=== PATIENT | female | born 1985 | race Two or more races ===

== ENCOUNTER 2017-07-27 16:19 | Emergency (ER) | payer OTHER ==
[~2017-07-27] VITALS: Ht 165.1 cm; Wt 54.5 kg
[~2017-07-27 16:19] MED LIST: COL100L PO; IBUP-1152 PO; NOMED; OXY5 PO
[2017-07-27 16:27] VITALS: BP 152/99; PULSE 77; RESP 16; O2SAT 100
[2017-07-27 17:02] LABS: BASOPHILS % (AUTO) 0.7 % (0-3); EOSINOPHILS % (AUTO) 1.6 % (0-5); MONOCYTES % (AUTO) 11.7 % (4-12); Mean Corpuscular Hemoglobin 29.3 pg (27.0-35.0); Mean Corpuscular Volume 85.6 fL (81-100); NEUTROPHILS % (AUTO) 50.3 % (40-74); Platelet Count 284 bil/L (150-400)
--- NOTE | 2017-07-27 17:16 | ED.REPORT ---
HPI-Chest Pain Under 40 Date of Service Jul 27, 2017 ED Provider: Raad Yin MD The pt is a left-handed 32 year old female with a history of anxiety who presents to the ED complaining of chest pain. This is described as a "squeezing pain" that began on 07/25/2017 when the pt was getting ready for work. The pain is located in the left pectoral region radiating to her back and is exacerbated by movement. The pt denies fever or chills. She also denies any history of blood clots or recent periods of immobilization. The patient works in a [employer] facility and does repeated lifting with her left arm. She thinks that she sprained a muscle. Nursing Notes Stated Complaint: HEART PAIN Chief Complaint: Chest Pain Nursing Notes Reviewed: Yes Allergies: Coded Allergies: No Known Allergies (Verified Allergy, Unknown, 07/27/17) Scheduled Docusate Sod-Expunged Drug, Do Not Renew! (Docusate Sod-Expunged Drug, Do Not Renew!) 100 Mg Capsule 100 MG PO BID Scheduled PRN IBUPROFEN-Expunged Drug, Do Not Renew! (IBUPROFEN-Expunged Drug, Do Not Renew!) 800 Mg Tablet 800 MG PO Q6H PRN PRN For Pain oxyCODONE-Expunged, Do Not Renew! (oxyCODONE-Expunged, Do Not Renew!) 5 Mg Tablet 5-10 MG PO Q4 PRN PRN For Pain Miscellaneous Medications No Historical Medication (No Historical Medication) Ea General Time Seen by MD: 17:14 Chief Complaint Chest pain Hx Obtained From: Patient Arrived By: Walk-in Sudden in Onset?: Yes Onset Occurred: 2 days ago Symptom Duration: Since onset Recent Healthcare: No recent doctor visit, No recent hospitalization Similar Sx Previous: No Past Medical History Past Medical History anxiety depression hypertension Past Surgical History none reported Smoking History Unknown if Ever Smoker Social History Other Social History: Good social support Ambulatory Status Independent Review of Systems Constitutional: Denies: Chills, Fever Respiratory: Denies: Non-productive cough, Shortness of breath Cardiovascular: Reports: Chest pain GI: Denies: Abdominal pain, Vomiting Musculoskeletal: Reports: Back pain, Denies: Neck pain Skin: Denies Rash Complete sys rev & neg: except as marked. Physical Exam Initial Vital Signs Vital Signs (First) Date Time Temp Pulse Resp B/P Pulse Ox O2 Delivery O2 Flow Rate FiO2 07/27/17 16:27 36.7 77 16 152/99 100 Room Air Initial VS: Reviewed General/Constitutional: Awake, Alert Respiratory / Chest: Breath sounds NL, Breath sounds = bilat, No respiratory distress reproducible tenderness about the left anterior and lateral chest wall in the pectoral region reproducible pain with movement of the left shoulder, bending and twisting Cardiovascular: Heart rate NL, Regular rhythm, Heart sounds NL, No gallop, No murmurs, No rubs Neck: Atraumatic, Supple, Full range of motion Abdomen: Atraumatic, Soft, Non-tender, No distention Back: Atraumatic, Full range of motion Lower Extremity / Pelvis / MS: Atraumatic, Full range of motion no calf swelling or tenderness Skin: Atraumatic, Color NL, No rash, Warm, Dry Neurologic: Oriented X3, Speech NL, No motor deficits, No sensory deficits Psychiatric: Affect NL, Mood NL Head / Eyes: Atraumatic, Normocephalic, PERRL, EOMI ENT: Atraumatic, Airway patent, Mucous membranes moist Upper Extremity / MS: Atraumatic, Full range of motion Interpretation & Diagnostics Lab Results Interpretation Result Diagram: 07/27/17 1658 07/27/17 1658 Test 07/27/17 16:58 White Blood Count 4.3th/mm3 (3.8-10.1) Red Blood Count 4.51mil/mm3 (3.90-5.20) Hemoglobin 13.2g/dL (12.0-15.6) Hematocrit 38.6% (35.0-46.0) Mean Corpuscular Volume 85.6fL (81-100) Mean Corpuscular Hemoglobin 29.3pg (27.0-35.0) Mean Corpuscular Hemoglobin Concent 34.2% (32.0-37.0) Red Cell Distribution Width 12.4% (12.3-15.4) Platelet Count 284bil/L (150-400) Neutrophils (%) (Auto) 50.3% (40-74) Lymphocytes (%) (Auto) 35.7% (14-46) Monocytes (%) (Auto) 11.7% (4-12) Eosinophils (%) (Auto) 1.6% (0-5) Basophils (%) (Auto) 0.7% (0-3) Sodium Level 138mEq/L (134-144) Potassium Level 4.0mEq/L (3.5-5.2) Chloride Level 101mEq/L (97-108) Carbon Dioxide Level 24mmol/L (18-29) Blood Urea Nitrogen 12mg/dL (6-20) Creatinine 0.54mg/dL (0.57-1.00) Estimat Glomerular Filtration Rate 189mL/min (>59) Glucose Level 93mg/dL (60-99) Calcium Level 9.3mg/dL (8.5-10.1) Magnesium Level 2.0mg/dL (1.6-2.6) Total Bilirubin 0.2mg/dL (0.0-1.2) Aspartate Amino Transf (AST/SGOT) 14U/L (0-50) Alanine Aminotransferase (ALT/SGPT) 11U/L (0-32) Alkaline Phosphatase 50U/L (25-150) Troponin T < 0.010ug/L (0.0-0.011) Total Protein 8.0g/dL (6.4-8.4) Albumin 4.5g/dL (3.4-5.0) Human Chorionic Gonadotropin, Qual Negative (Negative) Hold Mares Top Tube Received (Received) ECG Interpretation ECG Interpretation: normal sinus rhythm with a rate of 73 normal axis normal interval no ST segment elevation no T wave inversions no prior EKG available for comparison Time: 16:45 Interpreted by: ED physician X-Ray Chest Interpretation Chest Xray Interpretation: IMPRESSION: Acute disease is not seen in the portable chest. Dictated by: Brandon Horta M.D. on 07/27/2017 at 17:35 Approved by: Brandon Horta M.D. on 07/27/2017 at 17:35 Interpretation / Wet Read by: Interpret - Radiologist Re-Eval/Medical Decision Med Decision/Clinical Course The pt is a left-handed 32 year old female with a history of anxiety who presents to the ED complaining of chest pain. This is described as a "squeezing pain" that began on 07/25/2017 when the pt was getting ready for work. The pain is located in the left pectoral region radiating to her back and is exacerbated by movement. The pt denies fever or chills. She also denies any history of blood clots or recent periods of immobilization. 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 She thinks that she sprained a muscle. Here in the emergency department the patient is afebrile with stable vital signs and examination as above. Of note her pain is reproducible with movement and palpation. Laboratory studies were obtained as below: CBC unremarkable CMP unremarkable Troponin negative negative CXR: Obtained, reviewed and interpreted by myself shows no evidence of infiltrates, effusions or pneumothorax. Cardiac and mediastinal silhouette normal. No bony or soft tissue abnormalities. EKG: normal sinus rhythm with a rate of 73 normal axis normal interval no ST segment elevation no T wave inversions no prior EKG available for comparison Overall presentation is unconvincing for acute coronary syndrome. Patient is relatively young, extremely low risk without convincing story for cardiac etiologies of her chest pain. Given negative initial screening EKG and troponin I do not feel that further workup is indicated. Presentation not suggestive of pulmonary embolism. Patient is very low risk for PE with no evidence of DVT on examination. I do not feel that workup for pulmonary embolism is indicated. Presentation, history and examination are consistent with musculoskeletal etiologies of pain. Advised to take ibuprofen, apply ice packs, stretching and follow-up with her primary care physician. Patient is in agreement with this plan. Prior to discharge follow-up and return precautions were reviewed in detail with the patient who verbalized understanding and agreement with the plan. The patient was discharged in stable condition. Re-Evaluation/Progress : Time of Eval: 18:17 Patient Status: Condition improved Re-Evaluation/Progress Note: Pt rechecked, who is resting. The diagnosis and plan for discharge are discussed. The pt understands and agrees with the plan. All questions are addressed at this time. Counseled Regarding: Diagnosis, Lab results, Need for follow-up, When/why to return to ED Discharge & Departure Primary Impression: Chest wall pain Additional Impressions: Pectoralis muscle strain Encounter type: initial encounter Qualified Code: S29.011A - Strain of muscle and tendon of front wall of thorax, initial encounter Anxiety Disposition: Home Discharge Condition All VS Reviewed: Yes Condition: Stable Patient Instructions: Noncardiac Chest Pain (ED) Additional Instructions: Thank you for seeking care at the emergency room. It is difficult for us to make definitive diagnoses in the ED but we believe that you are experiencing a muscle strain. Our primary goal today in the Emergency Department was to evaluate you for any life-threatening conditions. Your evaluation was reassuring. Take ibuprofen three times daily for up to one week. You should follow-up with your primary doctor in the next week. You should return to the Emergency Department immediately if you develop worsening pain, pain with exertion, fevers, vomiting, cough, shortness of breath , weakness or any other concerning signs or symptoms. Thank you for letting us partake in your care today. Referrals: Zoey Lindo MD (PCP) Scribe Attestation Portions of this note were transcribed by Patrick Langston. I, Dr. Yin personally performed the history, physical exam and medical decision-making; I reviewed and confirmed the accuracy of the information in the transcribed note. copies to: Zoey Lindo MD, Beck O MD Jul 27, 2017 17:16 PATRICK LANGSTON Jul 27, 2017 18:11
--- NOTE | 2017-07-27 17:36 | DRSVH ---
PROCEDURE: X-RAY CHEST ONE VIEW, PORTABLE ([id number]) INDICATIONS: chest pain TECHNIQUE: One view of the chest was acquired. COMPARISON: None. FINDINGS: Surgical changes and devices: None. Lungs and pleura: No pleural effusions or pneumothorax. Lungs are clear. Mediastinum: Mediastinal contours appear normal. Heart size is normal. Bones and chest wall: No suspicious bony lesions. Overlying soft tissues appear unremarkable. IMPRESSION: Acute disease is not seen in the portable chest. Dictated by: Brandon Horta M.D. on 07/27/2017 at 17:35 Approved by: Brandon Horta M.D. on 07/27/2017 at 17:35
[2017-07-27 17:59] LABS: TROPONIN T < 0.010 ug/L (0.0-0.011)
[2017-07-27 18:53] VITALS: BP 125/90; PULSE 66
== END 2017-07-27 18:50 | disposition home or self-care (01) ==
LOC: SED 16:19
DX: R07.89 Other chest pain (principal); S29.011A Strain of muscle and tendon of front wall of thorax, initial encounter; X50.3XXA Overexertion from repetitive movements, initial encounter; Y93.89 Activity, other specified; Y99.8 Other external cause status; Y92.59 Other trade areas as the place of occurrence of the external cause; I10 Essential (primary) hypertension; F41.9 Anxiety disorder, unspecified
CPT/HCPCS: 36415; 71010; 80053; 83735; 84484; 84703; 85025; 93005; 99285; G0463